=== PATIENT | female | born 1945 | race Caucasian/White ===

== ENCOUNTER 2022-10-26 11:00 | Emergency (ER) | payer MEDICARE ==
[2022-10-26 11:29] LABS: #Eosinphils 0.5 thou/uL (0.0-0.7); #Lymphocytes 0.7 thou/uL (1.20-3.40); #Neutrophils 4.8 thou/uL (1.40-6.50); %Basophils 0.1 % (0.0-1.0); %Eosinophils 7.7 % (0.0-10.0); %Lymphocytes 10.2 % (21.0-51.0); %Monocytes 13.6 % (0.0-10.0); %Neutrophils 68.4 % (42.0-75.0); Mean Corpuscular HGB CONC 33.1 g/dL (32.0-36.0); Mean Corpuscular Hemoglobin 30.7 pg (27.0-31.0); Mean Corpuscular Volume 92.9 fl (78.0-98.0); Mean Platelet Volume 7.7 fL (7.4-10.4); Platelet Count 265 10x3/uL (130-400); RBC Distribution Width 16.7 % (11.5-14.5); Red Blood Cell (RBC) Count 4.22 mill/uL (4.20-5.40); White Blood Cell (WBC) Count 7.1 10x3/uL (4.8-10.8)
[2022-10-26 12:16] LABS: ALT (SGPT) 17 U/L (8-55); AST (SGOT) 32 U/L (5-34); Albumin 3.3 g/dL (3.4-4.8); Alkaline Phosphatase 59 U/L (40-110); Anion Gap 15 mmol/L (10-20); BUN (Urea Nitrogen) 18 mg/dL (9.8-20.1); Calc. Creatinine Clearance 0 mL/min (70-130); Calcium 10.1 mg/dL (7.8-10.44); Carbon Dioxide 22 mmol/L (23-31); Chloride 98 mmol/L (98-107); Estimated GFR 77; Globulin 3.9 g/dL (2.4-3.5); Glucose 137 mg/dL (83-110); Protein, Total 7.2 g/dL (5.8-8.1); Sodium 131 mmol/L (136-145)
[2022-10-26] MEDS ORDERED: Ondansetron PF 4 MG/2 ML Vial ONE (13:35)
[2022-10-26 13:37] LABS: CK (CPK) 20 U/L (29-168); Lipase 30 U/L (8-78)
[2022-10-26 14:43] LABS: SARS-CoV-2 NAA Rapid Test Not Detected (NotDetected)
== END 2022-10-26 15:19 | disposition home or self-care (01) ==
LOC: ERS 11:00
DX: B34.9 Viral infection, unspecified (principal); E11.9 Type 2 diabetes mellitus without complications; E03.9 Hypothyroidism, unspecified; K21.9 Gastro-esophageal reflux disease without esophagitis; E78.5 Hyperlipidemia, unspecified; I50.9 Heart failure, unspecified; Z20.822 Contact with and (suspected) exposure to COVID-19; Z79.82 Long term (current) use of aspirin; Z79.899 Other long term (current) drug therapy; Z79.4 Long term (current) use of insulin
CPT/HCPCS: 0240U; 80053; 82550; 83690; 83880; 84484; 85025; 93005; 36415; 96361; 96374; J2405

== ENCOUNTER 2022-11-29 12:38 | Outpatient (CLI) | payer MEDICARE | END 2022-11-29 12:39 | disposition home or self-care (01) | LOC: TBSIIMAG 12:38 | PROVIDERS: ATTEND Physician Assistant | DX: M48.56XA Collapsed vertebra, not elsewhere classified, lumbar region, initial encounter for fracture (principal) | CPT/HCPCS: 72100 ==

== ENCOUNTER 2023-02-14 12:30 | Outpatient (CLI) | payer MEDICARE | END 2023-02-14 12:31 | disposition home or self-care (01) | LOC: TBSIIMAG 12:30 | PROVIDERS: ATTEND Neurological Surgery | DX: S22.009A Unspecified fracture of unspecified thoracic vertebra, initial encounter for closed fracture (principal) | CPT/HCPCS: 72100 ==

== ENCOUNTER 2023-08-03 09:10 | Outpatient (CLI) | payer MEDICARE ==
[2023-08-03 11:13] LABS: #Basophils 0.1 10x3/uL (0.0-0.2); #Eosinphils 0.4 10x3/uL (0.0-0.5); #Monocytes 1.2 10x3/uL (0.0-1.1); #Neutrophils 3.7 10x3/uL (1.5-8.4); %Basophils 0.9 % (0.0-2.0); %Eosinophils 6.5 % (0.0-6.0); %Lymphocytes 19.8 % (18.0-47.0); %Monocytes 17.8 % (0.0-10.0); %Neutrophils 54.1 % (40.0-75.0); Hemoglobin 11.5 g/dL (12.0-15.5); Mean Corpuscular HGB CONC 31.9 g/dL (32.0-36.0); Mean Corpuscular Hemoglobin 30.4 pg (27.0-33.0); Mean Corpuscular Volume 95.5 fl (81.6-98.3); Mean Platelet Volume 10.8 fl (7.4-10.4); Platelet Count 116 10x3/uL (150-450); RBC Distribution Width 15.6 % (11.5-14.5); Red Blood Cell (RBC) Count 3.78 10x6/uL (3.90-5.03); White Blood Cell (WBC) Count 6.9 10x3/uL (3.5-10.5)
[2023-08-03 11:27] LABS: Platelet Adequacy Comment Appears Decreased; RBC Morph Comment Within Normal Limits
[2023-08-03 11:36] LABS: INR-International Normal Ratio 1.1; Prothrombin Time 11.5 sec (9.5-12.1)
[2023-08-03 11:37] LABS: Anion Gap 16 mmol/L (10-20); BUN (Urea Nitrogen) 10 mg/dL (9.8-20.1); Calc. Creatinine Clearance 0 mL/min (70-130); Calcium 9.2 mg/dL (7.8-10.44); Carbon Dioxide 27 mmol/L (23-31); Chloride 100 mmol/L (98-107); Estimated GFR 72; Glucose 145 mg/dL (83-110); Potassium 3.9 mmol/L (3.5-5.1); Sodium 139 mmol/L (136-145)
== END 2023-08-03 09:11 | disposition home or self-care (01) ==
LOC: LABBT 09:10
PROVIDERS: ATTEND Orthopaedic Surgery
DX: Z01.818 Encounter for other preprocedural examination (principal); M17.12 Unilateral primary osteoarthritis, left knee
CPT/HCPCS: 80048; 85025; 85610; 87081; 93005; 93010

== ENCOUNTER 2023-08-07 05:41 | Observation (INO) | payer MEDICARE ==
[2023-08-03 09:48] VITALS: BMI 27.3
[2023-08-07] MEDS ORDERED: Tranexamic Acid 1,000 MG/10 ML VIAL ONE (05:59)
[2023-08-07] MEDS ORDERED: Vancomycin (BATCH) 1.5 GM/300 ML BAG ONE (06:00)
[2023-08-07] MEDS ORDERED: Sodium Chloride 0.9% 100 ML ONE ×2 (06:00→06:57)
[2023-08-07] MEDS ORDERED: diphenhydrAMINE 50 MG/ML VIAL ONE (06:35)
[2023-08-07] MEDS ORDERED: Ketorolac Tromethamine 30 MG/ML VIAL ONE (06:35)
[2023-08-07] MEDS ORDERED: PROPOFOL 200 MG/20 ML VIAL ONE (06:35)
[2023-08-07] MEDS ORDERED: Ondansetron PF 4 MG/2 ML Vial ONE (06:35)
[2023-08-07] MEDS ORDERED: Midazolam HCl 2 mg/2 ml Vial ONE ×2 (06:35→06:44)
[2023-08-07] MEDS ORDERED: fentaNYL PF 100 MCG/2 ML SYRINGE ONE (06:36)
[2023-08-07] MEDS ORDERED: Bupivacaine PF 0.5% 30 ML VIAL ONE ×2 (06:43→06:45)
[2023-08-07] MEDS ORDERED: EPINEPHrine 1 MG/ML AMP ONE (06:43)
[2023-08-07] MEDS ORDERED: fentaNYL 50 mcg/mL 1 mL Vial ONE (06:45)
[2023-08-07] MEDS ORDERED: CEFAZOLIN 2 GM VIAL ONE (06:57)
[2023-08-07] MEDS ORDERED: HYDROcodone/Acetaminophen 10/325 mg Tablet PO PRN ×2 (06:58)
[2023-08-07] MEDS ORDERED: diphenhydrAMINE 25 MG CAP PO PRN (06:58)
[2023-08-07] MEDS ORDERED: Acetaminophen 325 MG TAB PO PRN (06:58)
[2023-08-07] MEDS ORDERED: fentaNYL 50 mcg/mL 1 mL Vial SLOW IVP PRN (06:58)
[2023-08-07] MEDS ORDERED: Zolpidem Tartrate 5 MG TAB PO PRN (06:58)
[2023-08-07] MEDS ORDERED: Promethazine HCl 25 MG/ML VIAL IM PRN ×3 (06:58→09:27)
[2023-08-07] MEDS ORDERED: Non-Formulary Item 1 EACH (Insulin Lispro Protamin/Lispro [Humalog Mix 75/25 Kwikpen] 300 SC SCH (07:30)
[2023-08-07] MEDS ORDERED: oxyCODONE 5 MG TAB PO PRN (08:04)
[2023-08-07] MEDS ORDERED: Ropivacaine 0.2% 550 ML 550 ML NERVE BLCK SCH (08:15)
[2023-08-07] MEDS ORDERED: Sevoflurane 250 ML INH ANEST BOTTLE ONE (08:20)
[2023-08-07] MEDS ORDERED: PACU-Morphine 4MG/ML VIAL SLOW IVP PRN (08:31)
[2023-08-07] MEDS ORDERED: Ondansetron HCl/PF 4 MG/2 ML Vial IVP PRN ×2 (08:31→09:27)
[2023-08-07] MEDS ORDERED: HYDROmorphone 2 MG/ML VIAL SLOW IVP PRN (08:31)
[2023-08-07] MEDS ORDERED: Non-Formulary Item 1 EACH (Losartan Potassium [Losartan Potassium] 50 MG Tablet) PO SCH (09:00)
[2023-08-07] MEDS ORDERED: METOPROLOL TARTRATE 37.5 MG PO SCH (09:00)
[2023-08-07] MEDS ORDERED: Cholecalciferol 1,000 UNITS (25 MCG) TAB PO SCH (09:00)
[2023-08-07] MEDS ORDERED: Aspirin 81 mg Enteric Coated Tablet PO SCH (09:00)
[2023-08-07] MEDS ORDERED: FOLIC ACID 20 MG PO SCH ×2 (09:00)
[2023-08-07] MEDS ORDERED: Non-Formulary Item 1 EACH (Magnesium [Magnesium] 200 MG Tablet) PO SCH (09:00)
[2023-08-07] MEDS ORDERED: Non-Formulary Item 1 EACH (Levothyroxine Sodium [Levothyroxine Sodium] 137 MCG Tablet) PO SCH (09:00)
[2023-08-07] MEDS ORDERED: Fentanyl 250 MCG/5 ML VIAL ONE (09:19)
[2023-08-07] MEDS: Aspirin 81 mg Enteric Coated Tablet PO SCH ×2 (11:08→21:30)
[2023-08-07] MEDS: HumuLIN 70/30 100 Unit/ ml 10 ml Vial SC SCH ×2 (11:08→18:11)
[2023-08-07] MEDS: Sodium Chloride 0.9% 1,000 ML IV SCH ×3 (11:08→19:43)
[2023-08-07] MEDS: Cholecalciferol 1,000 UNITS (25 MCG) TAB PO SCH (11:09)
[2023-08-07] MEDS: Metoprolol Tartrate 25 MG TAB PO SCH ×2 (11:09→21:29)
[2023-08-07] MEDS: Senokot S 8.6-50 MG TAB PO SCH ×2 (11:09→21:29)
[2023-08-07] MEDS: Multivitamin W/ Minerals 1 TAB PO SCH (11:09)
[2023-08-07] MEDS: Ferrous Gluconate 324 MG TAB PO SCH ×3 (11:09→21:32)
[2023-08-07] MEDS: Magnesium Oxide 250 MG TAB PO SCH (11:09)
[2023-08-07] MEDS: Furosemide 40 MG TAB PO SCH (11:09)
[2023-08-07] MEDS: Atorvastatin Calcium 20 MG TAB PO SCH (11:09)
[2023-08-07] MEDS: Losartan 25 MG TAB PO SCH (11:09)
[2023-08-07] MEDS: Ketorolac Tromethamine 30 MG/ML VIAL IVP SCH ×3 (13:56→23:37)
[2023-08-07] MEDS: Ondansetron PF 4 MG/2 ML Vial IVP PRN ×2 (14:27→20:37)
[2023-08-07] MEDS: CEFAZOLIN 2 GM in Sodium Chloride 0.9% 100 ML IVPB SCH ×2 (14:28→21:41)
[2023-08-07] MEDS: oxyCODONE 5 MG TAB PO PRN (15:18)
[2023-08-08 05:09] LABS: Hematocrit 31.6 % (36.0-47.0); Hemoglobin 9.9 g/dL (12.0-16.0); Mean Corpuscular HGB CONC 31.3 g/dL (32.0-36.0); Mean Corpuscular Hemoglobin 30.3 pg (27.0-31.0); Mean Corpuscular Volume 96.6 fl (78.0-98.0); Mean Platelet Volume 10.7 fL (7.4-10.4); Platelet Count 110 10x3/uL (130-400); RBC Distribution Width 15.7 % (11.5-14.5); Red Blood Cell (RBC) Count 3.27 mill/uL (4.20-5.40); White Blood Cell (WBC) Count 9.4 10x3/uL (4.8-10.8)
[2023-08-08] MEDS: Levothyroxine Sodium 25 MCG TAB PO SCH (05:40)
[2023-08-08] MEDS: Levothyroxine Sodium 112 MCG TAB PO SCH (05:41)
[2023-08-08] MEDS: Ketorolac Tromethamine 30 MG/ML VIAL IVP SCH ×4 (05:43→23:47)
[2023-08-08] MEDS: Senokot S 8.6-50 MG TAB PO SCH ×2 (09:34→21:50)
[2023-08-08] MEDS: Aspirin 81 mg Enteric Coated Tablet PO SCH ×2 (09:35→21:49)
[2023-08-08] MEDS: Metoprolol Tartrate 25 MG TAB PO SCH ×2 (09:35→21:49)
[2023-08-08] MEDS: oxyCODONE 5 MG TAB PO PRN (09:37)
[2023-08-08] MEDS: Ferrous Gluconate 324 MG TAB PO SCH ×2 (09:39→21:49)
[2023-08-08] MEDS: Multivitamin W/ Minerals 1 TAB PO SCH (09:39)
[2023-08-08] MEDS: Furosemide 40 MG TAB PO SCH (09:40)
[2023-08-08] MEDS: Magnesium Oxide 250 MG TAB PO SCH (09:40)
[2023-08-08] MEDS: Atorvastatin Calcium 20 MG TAB PO SCH (09:40)
[2023-08-08] MEDS: Losartan 25 MG TAB PO SCH (09:41)
[2023-08-08] MEDS: Cholecalciferol 1,000 UNITS (25 MCG) TAB PO SCH (09:42)
[2023-08-08] MEDS: Acetaminophen 325 MG TAB PO SCH ×6 (10:13→23:49)
[2023-08-08] MEDS: HumuLIN 70/30 100 Unit/ ml 10 ml Vial SC SCH ×2 (10:17→15:54)
[2023-08-08] MEDS: Sodium Chloride 0.9% 1,000 ML IV SCH ×2 (11:41→23:53)
[2023-08-08] MEDS: Ondansetron PF 4 MG/2 ML Vial IVP PRN (12:31)
[2023-08-09] MEDS: Senokot S 8.6-50 MG TAB PO SCH ×2 (00:02→10:44)
[2023-08-09] MEDS: Ondansetron PF 4 MG/2 ML Vial IVP PRN ×2 (00:08→06:16)
[2023-08-09] MEDS: Ketorolac Tromethamine 30 MG/ML VIAL IVP SCH (06:16)
[2023-08-09] MEDS: Acetaminophen 325 MG TAB PO SCH (06:17)
[2023-08-09] MEDS: Levothyroxine Sodium 112 MCG TAB PO SCH (06:43)
[2023-08-09] MEDS: Levothyroxine Sodium 25 MCG TAB PO SCH (06:43)
[2023-08-09 08:42] VITALS: TEMP 98.4
[2023-08-09] MEDS: HumuLIN 70/30 100 Unit/ ml 10 ml Vial SC SCH (10:40)
[2023-08-09] MEDS: Metoprolol Tartrate 25 MG TAB PO SCH (10:45)
[2023-08-09] MEDS: Magnesium Oxide 250 MG TAB PO SCH (10:45)
[2023-08-09] MEDS: Aspirin 81 mg Enteric Coated Tablet PO SCH (10:46)
[2023-08-09] MEDS: Atorvastatin Calcium 20 MG TAB PO SCH (10:46)
[2023-08-09] MEDS: Losartan 25 MG TAB PO SCH (10:46)
[2023-08-09] MEDS: Multivitamin W/ Minerals 1 TAB PO SCH (10:46)
[2023-08-09] MEDS: Ferrous Gluconate 324 MG TAB PO SCH (10:46)
[2023-08-09] MEDS: Cholecalciferol 1,000 UNITS (25 MCG) TAB PO SCH (10:47)
[2023-08-09 11:51] VITALS: BP 128/75
== END 2023-08-09 12:32 | disposition home or self-care (01) ==
LOC: SDC 05:41 → SURG B 10:04
PROVIDERS: ADMIT Orthopaedic Surgery; ATTEND Orthopaedic Surgery
PROC: 0SRD0JZ Replacement of Left Knee Joint with Synthetic Substitute, Open Approach (ICD-10-PCS; principal; 2023-08-07)
DX: M17.12 Unilateral primary osteoarthritis, left knee (principal); I25.10 Atherosclerotic heart disease of native coronary artery without angina pectoris; E03.9 Hypothyroidism, unspecified; E11.9 Type 2 diabetes mellitus without complications; E78.5 Hyperlipidemia, unspecified; I10 Essential (primary) hypertension; K21.9 Gastro-esophageal reflux disease without esophagitis; Z95.1 Presence of aortocoronary bypass graft; Z87.891 Personal history of nicotine dependence; Z90.710 Acquired absence of both cervix and uterus; Z79.899 Other long term (current) drug therapy; Z79.890 Hormone replacement therapy; Z79.82 Long term (current) use of aspirin; Z88.5 Allergy status to narcotic agent; Z79.4 Long term (current) use of insulin; Z88.0 Allergy status to penicillin; Z88.7 Allergy status to serum and vaccine
CPT/HCPCS: 27447; 73560; 82962 ×3; 85027; 96365; 96375; 96376 ×3; 97110 ×3; 97116 ×3; 97530 ×2; A4306; C1776; G0378 ×3; J3010; J3370; 36415; 36416; J0171; J1200; J1815; J1885; J2250; J2405; J2704; J2795; J3490; S0020

== ENCOUNTER 2023-11-20 15:58 | Outpatient (CLI) | payer MEDICARE | END 2023-11-20 15:59 | disposition home or self-care (01) | LOC: BICRAD 15:58 | PROVIDERS: ATTEND Family Medicine | DX: M54.2 Cervicalgia (principal); M25.512 Pain in left shoulder; M47.812 Spondylosis without myelopathy or radiculopathy, cervical region; M75.82 Other shoulder lesions, left shoulder; Z98.1 Arthrodesis status; Z98.890 Other specified postprocedural states | CPT/HCPCS: 72040 ==